=== PATIENT | male | born 1950 | race African-American/Black ===

== ENCOUNTER 2017-11-12 11:51 | Inpatient (IN) | payer MEDICARE, OTHER ==
[~2017-11-12] VITALS: Ht 172.7 cm; Wt 86.2 kg
--- NOTE | 2017-11-12 12:00 | NUR ---
No 1:1 available at this time per Nursing Jig And Fixture Builder, Security at bedside for safety.
--- NOTE | 2017-11-12 12:00 | NUR ---
at bedside to examine patient.
[2017-11-12] MEDS ORDERED: FURO-152 PO (12:11)
[2017-11-12] MEDS ORDERED: FLUO20CA36 PO (12:11)
[2017-11-12] MEDS ORDERED: FOLI1TAB16 PO (12:11)
[2017-11-12] MEDS ORDERED: ATOR20TA27 PO (12:11)
[2017-11-12] MEDS ORDERED: LISI-603 PO (12:11)
[2017-11-12] MEDS ORDERED: ASPI81TA31 PO (12:11)
[2017-11-12] MEDS ORDERED: METF10004 PO (12:12)
[2017-11-12] MEDS ORDERED: HALOPERIDOL LACTATE 5 MG/1 ML VIAL IM ONE (12:15)
[2017-11-12] MEDS ORDERED: LORAZEPAM 2 MG/1 ML VIAL IM ONE (12:15)
[2017-11-12] MEDS ORDERED: LORAZEPAM 2 MG/1 ML VIAL ONE (12:21)
[2017-11-12] MEDS ORDERED: HALOPERIDOL LACTATE 5 MG/1 ML VIAL ONE (12:21)
[2017-11-12 12:29] LABS: BASOPHILS # (AUTO) 0.1 K/uL (0.0-8.0); BASOPHILS % (AUTO) 0.8 % (0.0-2.0); EOSINOPHILS % (AUTO) 0.1 % (0.0-7.0); HEMATOCRIT 36.8 % (36.7-47.1); HEMOGLOBIN 12.4 g/dL (12.5-16.3); LYMPHOCYTES # (AUTO) 2.4 K/uL (20.0-40.0); MEAN CORPUSCULAR HEMOGLOBIN 33.6 uug (23.8-33.4); MEAN CORPUSCULAR HGB CONC 34 g/dL (32.5-36.3); MEAN CORPUSCULAR VOLUME 99.9 fL (73.0-96.2); MONOCYTES # (AUTO) 1.3 K/uL (2.0-10.0); MONOCYTES % (AUTO) 10.4 % (0.0-11.0); NEUTROPHILS # (AUTO) 8.9 K/uL (1.8-8.9); NEUTROPHILS % (AUTO) 69.7 % (38.5-71.5); PLATELET COUNT (AUTO) 369 K/uL (152-348); RED BLOOD CELL COUNT(AUTO) 3.69 MIL/uL (4.06-5.63); WHITE BLOOD COUNT (AUTO) 12.8 K/uL (3.6-10.2)
[2017-11-12 12:31] LABS: CARBON DIOXIDE 25 mmol/L (21-32); CHLORIDE 109 mmol/L (98-107); CREATININE 2.7 mg/dL (0.6-1.3); GLUCOSE 61 mg/dL (74-106); POTASSIUM 4.5 mmol/L (3.5-5.1); UREA NITROGEN, BLOOD 56 mg/dL (7-18)
[2017-11-12 12:35] LABS: ALANINE AMINOTRANSFERASE 111 U/L (16-63); ALKALINE PHOSPHATASE 78 U/L (50-136); ASPARTATE AMINOTRANSFERASE 127 U/L (15-37); BILIRUBIN,DIRECT 0.2 mg/dL (0.0-0.2); BILIRUBIN,TOTAL 0.5 mg/dL (0.2-1.0); TOTAL PROTEIN, SERUM 8.5 g/dL (6.4-8.2)
[2017-11-12 12:36] LABS: ACETAMINOPHEN < 2.0 ug/mL (10-30); ETHANOL < 3 MG/DL (0-0)
--- NOTE | 2017-11-12 12:51 | NUR ---
No 1:1 sitter available at this time. Security at bedside for safety. Patient is not medically clear per ERMD, requested to have personnel assigned as 1:1 for patient. Nursing Brazing Machine Operator Automatic will notify staff when personnel are available.
[2017-11-12] MEDS ORDERED: IV NS 1000 ML 1,000 ML IV PRN (13:05)
[2017-11-12] MEDS ORDERED: ONDANSETRON 4 MG/2 ML VIAL IV PRN (13:15)
[2017-11-12] MEDS ORDERED: LORAZEPAM 2 MG/1 ML VIAL IV PRN (13:15)
[2017-11-12] MEDS ORDERED: MAGNESIUM HYDROXIDE 30 ML LIQUID UDC PO PRN (13:15)
[2017-11-12] MEDS ORDERED: ACETAMINOPHEN 325 MG TABLET PO PRN (13:15)
[2017-11-12] MEDS ORDERED: HYDROCODONE/APAP 5-325MG TABLET PO PRN (13:15)
[2017-11-12] MEDS ORDERED: TEMAZEPAM 15 MG CAPSULE PO PRN (13:15)
[2017-11-12] MEDS ORDERED: HYDROCODONE/APAP 10-325 MG TABLET PO PRN (13:15)
--- NOTE | 2017-11-12 15:08 | NUR ---
telephone report given to Madelyn Trujillo. Pt. awaiting transfer to room 208.
--- NOTE | 2017-11-12 16:00 | NUR ---
PATIENT RECEIVED FROM E.. PATIENT WAS WET FROM NECK TO KNEES AND HAD URINATED HIMSELF. PATIENT WAS UNABLE TO ANSWER QUESTIONS HE WAS SLURRING SPEECH, AND VERY LETHARGIC. ALL BELONGINGS ACCOUNTED FOR AND PATIENT IS BEING MONITORED BY A 1:1 SITTER.
[2017-11-12] MEDS ORDERED: LORAZEPAM 2 MG/1 ML VIAL IM PRN (17:15)
[2017-11-12] MEDS ORDERED: HALOPERIDOL LACTATE 5 MG/1 ML VIAL IM PRN (17:45)
--- NOTE | 2017-11-12 18:50 | NUR ---
PATIENT STILL SLEEPING, BUT AWOKEN TO VERBAL STIMULATION. SITTER AT BEDSIDE, BED IN LOW POSITION, SIDE RAILS UP X2.
[2017-11-12 19:00] VITALS: BP 138/61
--- NOTE | 2017-11-12 19:14 | NUR ---
CHECKED PATIENTS BLOOD SUGAR AND REVEALED TO BE 41, JUICE GIVEN, AND PATIENT REPORTS FEELING "BETTER ALREADY".
[2017-11-13] VITALS: BP 141/73
[2017-11-13 04:00] VITALS: BP 145/71
--- NOTE | 2017-11-13 06:18 | NUR ---
PT SLEPT INTERMITTENTLY THROUGH THE NIGHT, PT DENIED HAVING ANY PAIN OR DIFFICULTY BREATHING. PT WAS CALM AND COOPERATIVE FOR MOST OF THE NIGHT, PT BECAME CONFUSED AND RESTLESS IN THE CEMENTER HELPER BUT WAS ABLE TO BE REDIRECTED, PT HAS TANGENTIAL TAUGHT, JUMPING FROM ONE TOPIC TO ANOTHER. PT IS ON A 72hr HOLD THAT IS UP ON 11/14/17 AT 1035. TRIED TO START AN IV ON PT, PT BECAME RESTLESS AND REFUSED TO HAVE AN IV INSERTED, PER DAY SHIFT NURSE AWARE OF PT REFUSING IV. DENIES HAVING ANY HALLUCINATIONS BUT PT IS NOTED TO MUMBLE UNDER HIS BREATH. ALL NEEDS MET, SAFETY MEASURES ARE IN PLACE, 1:1 SITTER AT BEDSIDE. BED ALARM IS ON.
[2017-11-13] MEDS: PANTOPRAZOLE SODIUM 40 MG TABLET.DR PO SCH (06:57)
[2017-11-13 06:59] LABS: BASOPHILS # (AUTO) 0.1 K/uL (0.0-8.0); BASOPHILS % (AUTO) 0.7 % (0.0-2.0); EOSINOPHILS # (AUTO) 0.1 K/uL (0.0-0.7); HEMATOCRIT 35.2 % (36.7-47.1); LYMPHOCYTES # (AUTO) 2.6 K/uL (20.0-40.0); LYMPHOCYTES % (AUTO) 31.6 % (20.5-51.5); MEAN CORPUSCULAR HEMOGLOBIN 33.7 uug (23.8-33.4); MEAN CORPUSCULAR HGB CONC 34 g/dL (32.5-36.3); MEAN CORPUSCULAR VOLUME 99.1 fL (73.0-96.2); MONOCYTES % (AUTO) 12.4 % (0.0-11.0); NEUTROPHILS # (AUTO) 4.5 K/uL (1.8-8.9); NEUTROPHILS % (AUTO) 54.3 % (38.5-71.5); PLATELET COUNT (AUTO) 328 K/uL (152-348); RED BLOOD CELL COUNT(AUTO) 3.55 MIL/uL (4.06-5.63); WHITE BLOOD COUNT (AUTO) 8.3 K/uL (3.6-10.2)
[2017-11-13 07:09] LABS: CREATININE 1.6 mg/dL (0.6-1.3); MAGNESIUM 2.5 mg/dL (1.8-2.4); PHOSPHOROUS 4.2 mg/dL (2.5-4.9); POTASSIUM 4.4 mmol/L (3.5-5.1)
--- NOTE | 2017-11-13 07:10 | NUR ---
RECEIVED REPORT FROM LEATHER ETCHER NURSE, PATIENT IN BED AWAKE, NO DISTRESS NOTED, BED IN LOW POSITION, SIDE RAILS UP X2. BED ALARM ON. SITTER AT BEDSIDE.
--- NOTE | 2017-11-13 08:10 | NUR ---
Patient started wandering the hallways and screaming that he is going to leave the hospital and he is not sick. patient later went to bed and poured a water pitcher of ice water over his head and claimed he was cleaning up.
[2017-11-13] MEDS: risperiDONE 0.5 MG TABLET PO SCH ×2 (11:18→20:40)
[2017-11-13] MEDS: BLOOD SUGAR DIAGNOSTIC 1 EACH STRIP VI SCH ×4 (12:34→20:51)
[2017-11-13 13:29] VITALS: BP 116/68
[2017-11-13 16:22] LABS: *BILIRUBIN,URIN NEGATIVE (NEGATIVE); *BLOOD, URINE NEGATIVE (NEGATIVE); *CLARITY,URINE SLIGHTLY CLOUDY (CLEAR); *COLOR,URINE YELLOW (YELLOW); *KETONES,URINE NEGATIVE (NEGATIVE); *PROTEIN,URINE 1+ (NEGATIVE); *UROBILINOGEN,URINE 0.2 E.U./dl (NORMAL); LEUKOCYTE ESTERASE ,URINE NEGATIVE (NEGATIVE); NITRITE, URINE NEGATIVE (NEGATIVE); PH,URINE 5.5 (5.0-8.0); UGLUCOSE NEGATIVE (NEGATIVE)
[2017-11-13 16:25] LABS: BACTERIA,URINE NONE SEEN /HPF (NONE SEEN); RBC,URINE 0-3 /HPF (0-3); SQUAMOUS EPITHELIAL CELL,UR NONE SEEN /HPF (NONE SEEN)
[2017-11-13 16:28] LABS: *CREATININE,URINE 143.6 mg/dL (30-125); *URINE TOTAL PROTEIN RANDOM 66.9 mg/dL (<150/24HR)
--- NOTE | 2017-11-13 18:52 | NUR ---
Patient was cooperative with care after morning administration of haldol and ativan. Patient was also seen by Dr. Luciano, medication changes made. Currently patient is in bed, no distress noted, bed in low position, side rails up x2, bed alarm on.
[2017-11-13 19:00] VITALS: BP 123/66
--- NOTE | 2017-11-13 20:00 | NUR ---
PATIENT IS AWAKE IN BED AAOX2 WITH CONFUSION. DENIES PAIN, NO ACUTE DISTRESS ON ASSESSMENT. SAFETY MEASURES IN PLACE, SITTER AT BEDSIDE FOR SAFETY CONCERNS. WILL CONTINUE TO MONITOR PATIENT
[2017-11-14] VITALS: BP 126/75
[2017-11-14 04:00] VITALS: BP 139/79
[2017-11-14] MEDS: PANTOPRAZOLE SODIUM 40 MG TABLET.DR PO SCH (06:17)
[2017-11-14] MEDS: BLOOD SUGAR DIAGNOSTIC 1 EACH STRIP VI SCH (06:23)
[2017-11-14 06:32] LABS: BASOPHILS # (AUTO) 0.1 K/uL (0.0-8.0); EOSINOPHILS # (AUTO) 0.1 K/uL (0.0-0.7); EOSINOPHILS % (AUTO) 1.4 % (0.0-7.0); HEMATOCRIT 32.3 % (36.7-47.1); HEMOGLOBIN 11.2 g/dL (12.5-16.3); LYMPHOCYTES # (AUTO) 3.4 K/uL (20.0-40.0); MEAN CORPUSCULAR HGB CONC 35 g/dL (32.5-36.3); MEAN CORPUSCULAR VOLUME 98.2 fL (73.0-96.2); MONOCYTES # (AUTO) 0.8 K/uL (2.0-10.0); MONOCYTES % (AUTO) 11.5 % (0.0-11.0); NEUTROPHILS # (AUTO) 2.7 K/uL (1.8-8.9); NEUTROPHILS % (AUTO) 38.1 % (38.5-71.5); PLATELET COUNT (AUTO) 307 K/uL (152-348); RED BLOOD CELL COUNT(AUTO) 3.29 MIL/uL (4.06-5.63)
--- NOTE | 2017-11-14 06:47 | NUR ---
PATIENT SLEPT WELL THROUGHOUT THE SHIFT. NO C/O PAIN OR ACUTE DISTRESS NOTED. PATIENT VOIDING WITHOUT DIFFICULTY. COOPERATIVE WITH CARE THIS SHIFT.SAFETY MAINTAINED AT ALL TIMES, SITTER REMAINS AT BEDSIDE WITH CLOSE MONITORING OF PATIENT.
[2017-11-14 07:04] LABS: BILIRUBIN,TOTAL 0.5 mg/dL (0.2-1.0); CREATININE 1.3 mg/dL (0.6-1.3); PHOSPHOROUS 2.8 mg/dL (2.5-4.9); POTASSIUM 4.5 mmol/L (3.5-5.1); TOTAL PROTEIN, SERUM 6.7 g/dL (6.4-8.2)
--- NOTE | 2017-11-14 07:10 | NUR ---
RECEIVED REPORT FROM BID MANAGER NURSE, PATIENT IN BED ASLEEP, NO DISTRESS NOTED AT THIS TIME, BED IN LOW POSITION, SIDE RAILS UP X2, BED ALARM ON, SITTER AT BEDSIDE.
[2017-11-14] MEDS: risperiDONE 0.5 MG TABLET PO SCH (08:46)
--- NOTE | 2017-11-14 11:40 | NUR ---
Patient given discharge instructions, belongings accounted for, and transported via wheelchair to MHU. Patient was in no distress at the time of discharge.
[2017-11-16 11:28] LABS: A/G RATIO 0.9 (0.7-1.7); ALPHA-1-GLOBULIN 0.2 g/dL (0.0-0.4); ALPHA-2-GLOBULIN 0.9 g/dL (0.4-1.0); BETA GLOBULIN 0.9 g/dL (0.7-1.3); GAMMA GLOBULIN 1.3 g/dL (0.4-1.8); GLOBULIN, TOTAL 3.3 g/dL (2.2-3.9); M-SPIKE Not Observed g/dL (Not Observed)
== END 2017-11-14 11:40 | DRG 684 ==
LOC: ER 11:58 → TELE 15:25
PROVIDERS: ADMIT Nurse Practitioner Acute Care; ATTEND Nurse Practitioner Acute Care
DX: N17.0 Acute kidney failure with tubular necrosis (principal); T50.2X5A Adverse effect of carbonic-anhydrase inhibitors, benzothiadiazides and other diuretics, initial encounter; T46.4X5A Adverse effect of angiotensin-converting-enzyme inhibitors, initial encounter; F29 Unspecified psychosis not due to a substance or known physiological condition; Y92.009 Unspecified place in unspecified non-institutional (private) residence as the place of occurrence of the external cause; D52.9 Folate deficiency anemia, unspecified; Z59.0 Homelessness; I10 Essential (primary) hypertension; F15.10 Other stimulant abuse, uncomplicated; F17.200 Nicotine dependence, unspecified, uncomplicated; E11.9 Type 2 diabetes mellitus without complications; E78.5 Hyperlipidemia, unspecified; D53.9 Nutritional anemia, unspecified; Z79.82 Long term (current) use of aspirin; Z79.899 Other long term (current) drug therapy; D72.829 Elevated white blood cell count, unspecified
CPT/HCPCS: 36415; 71045; 83735; 83970; 84100; 84155; 84156; 84165; 84300; 85025; 92523; 93005; 93307; A4663; G0480; G0480-TC; J1630; J2060

== ENCOUNTER 2017-11-14 12:28 | Inpatient (IN) | payer MEDICARE, OTHER ==
[~2017-11-14] VITALS: Ht 167.6 cm; Wt 74.4 kg
[2017-11-14 11:50] VITALS: BP 136/75
[~2017-11-14 12:28] MED LIST: ASPI81TA31 PO; ATOR20TA27 PO; FLUO20CA36 PO; FOLI1TAB16 PO; FURO-152 PO; LISI-603 PO; METF10004 PO
[2017-11-14] MEDS ORDERED: MAGNESIUM HYDROXIDE 30 ML LIQUID UDC PO PRN (12:45)
[2017-11-14] MEDS ORDERED: ACETAMINOPHEN 325 MG TABLET PO PRN (12:45)
[2017-11-14] MEDS ORDERED: MAG HYDROX/AL HYDROX/SIMETH 30 ML LIQUID UDC PO PRN (12:45)
[2017-11-14 15:24] VITALS: BP 129/80
--- NOTE | 2017-11-14 19:45 | NUR ---
RECEIVED PATIENT IN HIS ROOM, IN BED. HE IS NOTED AWAKE, A/O X 2. HE IS ABLE TO AMBULATE WITH STEADY GAIT AND ABLE TO MAKE HIS NEEDS KNOWN. HE IS NOTED, CALM AND COOPERATIVE. LOW MOOD, WITHDRAWN TO HIS ROOM, BLUNTED AFFECT, POOR INSIGHT NOTED TO THE REASON FOR HIS ADMISSION. DENIES SI/HI/VH/AH. HE IS ABLE TO CONTRACT FOR SAFETY. MEDICATION COMPLIANT AT THIS TIME. SAFETY WAS EMPHASIS. WILL CONTINUE TO MONITOR
[2017-11-14 20:00] VITALS: BP 136/85
[2017-11-14] MEDS: ATORVASTATIN 20 MG TABLET PO SCH (21:41)
--- NOTE | 2017-11-15 06:29 | NUR ---
PATIENT SLEPT FOR APPROX 8.00 HRS THROUGH THE NIGHT. NO COMBATIVE/AGGRESSIVE BX NOTED AT THIS TIME. DENIES SI. ABLE TO CFS. WILL CONTINUE TO MONITOR.
[2017-11-15 07:30] VITALS: BP 111/57
[2017-11-15] MEDS ORDERED: DEXTROSE 50% 50 ML DISP.SYRIN IV PRN (08:15)
[2017-11-15] MEDS: ASPIRIN 81 MG TAB.CHEW PO SCH (08:25)
[2017-11-15] MEDS: FOLIC ACID 1 MG TABLET PO SCH (08:25)
[2017-11-15] MEDS: BLOOD SUGAR DIAGNOSTIC 1 EACH STRIP VI SCH ×3 (11:56→20:27)
[2017-11-15 16:13] VITALS: BP 118/79
[2017-11-15 19:45] VITALS: BP 137/85
[2017-11-15] MEDS: ATORVASTATIN 20 MG TABLET PO SCH (20:14)
[2017-11-15] MEDS: risperiDONE 0.5 MG TABLET PO SCH (20:14)
[2017-11-16 07:30] VITALS: BP 112/63
[2017-11-16] MEDS: risperiDONE 0.5 MG TABLET PO SCH ×2 (09:04→20:42)
[2017-11-16] MEDS: FOLIC ACID 1 MG TABLET PO SCH (09:04)
[2017-11-16] MEDS: BLOOD SUGAR DIAGNOSTIC 1 EACH STRIP VI SCH ×4 (09:04→20:48)
[2017-11-16] MEDS: ASPIRIN 81 MG TAB.CHEW PO SCH (09:04)
[2017-11-16 15:44] VITALS: BP 100/79
[2017-11-16] MEDS: INSULIN REGULAR, HUMAN 300 UNIT/3 ML VIAL SQ PRN (18:13)
[2017-11-16 20:25] VITALS: BP 116/71
[2017-11-16] MEDS: ATORVASTATIN 20 MG TABLET PO SCH (20:42)
[2017-11-16] MEDS: TEMAZEPAM 7.5 MG CAPSULE PO PRN (22:52)
[2017-11-17] MEDS: BLOOD SUGAR DIAGNOSTIC 1 EACH STRIP VI SCH ×4 (06:32→20:31)
[2017-11-17 07:30] VITALS: BP 119/66
[2017-11-17] MEDS: FOLIC ACID 1 MG TABLET PO SCH (10:42)
[2017-11-17] MEDS: risperiDONE 0.5 MG TABLET PO SCH ×2 (10:43→20:31)
[2017-11-17] MEDS: ASPIRIN 81 MG TAB.CHEW PO SCH (10:43)
--- NOTE | 2017-11-17 15:20 | NUR ---
Initial DC Plan: Patient currently resides at [facility] on [facility] [[address] , [place] [address]; ]. HANNAH spoke with Kira from [facility] who stated she can picking belt operator patient upon discharge. SW will follow up with MD and patient to discuss most appropriate discharge. SW will form a safe and proper discharge.
[2017-11-17 15:41] VITALS: BP 132/82
[2017-11-17] MEDS: INSULIN REGULAR, HUMAN 300 UNIT/3 ML VIAL SQ PRN (17:42)
--- NOTE | 2017-11-17 20:00 | NUR ---
RECEIVED PATIENT IN HIS ROOM. HE IS NOTED A/O X 2. HE IS ABLE TO AMBULATE WITH STEADY GAIT AND ABLE TO MAKE HIS NEEDS KNOWN. NOTED WITHDRAWN. HE DENIES SI/HI. HE DENIES VH/AH. SAFETY WAS EMPHASIS, ENCOURAGE EXPRESSION OF FEELINGS. WILL CONTINUE TO MONITOR.
[2017-11-17 20:09] VITALS: BP 125/73
[2017-11-17] MEDS: ATORVASTATIN 20 MG TABLET PO SCH (20:31)
[2017-11-18] MEDS: BLOOD SUGAR DIAGNOSTIC 1 EACH STRIP VI SCH ×4 (07:14→20:51)
[2017-11-18 07:30] VITALS: BP 106/71
[2017-11-18] MEDS: ASPIRIN 81 MG TAB.CHEW PO SCH (08:36)
[2017-11-18] MEDS: FOLIC ACID 1 MG TABLET PO SCH (08:39)
[2017-11-18] MEDS: risperiDONE 0.5 MG TABLET PO SCH (08:39)
[2017-11-18 15:55] VITALS: BP 119/81
[2017-11-18] MEDS: CLONAZEPAM 0.5 MG TABLET PO PRN (18:51)
[2017-11-18 20:46] VITALS: BP 120/70
[2017-11-18] MEDS: ATORVASTATIN 20 MG TABLET PO SCH (20:46)
[2017-11-18] MEDS: risperiDONE 1 MG TABLET PO SCH (20:46)
[2017-11-18] MEDS: INSULIN REGULAR, HUMAN 300 UNIT/3 ML VIAL SQ PRN (20:48)
--- NOTE | 2017-11-19 05:10 | NUR ---
GPS/NSG Patient first observed awake in room, alert and oriented to name, place and situation. Patient's appearance disheveled and unkempt. Patient compliant with medication, cooperative with care and diabetic treatment. Patient's speech normal, thought process somewhat disorganized poor insight. Patient continues to require observation for safety.
[2017-11-19 07:30] VITALS: BP 143/66
--- NOTE | 2017-11-19 07:30 | NUR ---
RECEIVED REPORT FROM ARCHITECT MARINE NURSE, PATIENT IN ROOM, NO SI OR PSYCHOTIC BEHAVIOR NOTED AT THIS TIME. PATIENT IS COOPERATIVE AND COMPLIANT WITH MEDS. INDEPENDENT WITH ADLS. SELF CARE. LAST BLOOD SUGAR 89, NO INSULIN COVERAGE NEEDED. COMFORT MEASURES PROVIDED. WILL CONTINUE TO MONITOR.
[2017-11-19] MEDS: BLOOD SUGAR DIAGNOSTIC 1 EACH STRIP VI SCH ×4 (07:37→20:11)
[2017-11-19] MEDS: FOLIC ACID 1 MG TABLET PO SCH (08:05)
[2017-11-19] MEDS: ASPIRIN 81 MG TAB.CHEW PO SCH (08:05)
[2017-11-19] MEDS ORDERED: risperiDONE 0.5 MG TABLET PO SCH (09:00)
[2017-11-19 14:23] VITALS: BP 156/83
[2017-11-19 20:00] VITALS: BP 153/80
--- NOTE | 2017-11-19 20:00 | NUR ---
RECEIVED PATIENT AWAKE, SITTING IN TV ROOM. A/O X2. NO PSYCHOTIC BEHAVIOR NOTED. PATIENT DENIES PAIN OR DISCOMFORT. PATIENT APPROPRIATE WITH STAFF AND COOPERATIVE WITH CARE. PROVIDED SAFE AND THERAPEUTIC ENVIRONMENT. WILL CONTINUE TO MONITOR AND CLOSELY MONITOR.
[2017-11-19] MEDS: ATORVASTATIN 20 MG TABLET PO SCH (20:10)
[2017-11-19] MEDS: risperiDONE 1 MG TABLET PO SCH (20:10)
[2017-11-19] MEDS: TEMAZEPAM 7.5 MG CAPSULE PO PRN (21:52)
--- NOTE | 2017-11-19 22:00 | NUR ---
PATIENT GIVEN RESTORIL 7.5MG PO PRN FOR SLEEP. BED ALARM ON. WILL CONTINUE TO MONITOR AND ASSESS.
--- NOTE | 2017-11-19 23:00 | NUR ---
RESTORIL INEFFECTIVE. PATIENT AWAKE IN ROOM, READING. WILL CONTINUE TO MONITOR AND ASSESS.
--- NOTE | 2017-11-19 23:40 | NUR ---
PATIENT WALKING IN HALLWAY. UNABLE TO SLEEP. PATIENT IS ANXIOUS. GIVEN KLONOPIN 0.5MG PO PRN FOR ANXIETY. WILL CONTINUE TO MONITOR.
[2017-11-19] MEDS: CLONAZEPAM 0.5 MG TABLET PO PRN (23:41)
--- NOTE | 2017-11-20 00:40 | NUR ---
PATIENT ASLEEP IN BED. BED ALARM ON. WILL CONTINUE TO MONITOR AND ASSESS.
[2017-11-20] MEDS: BLOOD SUGAR DIAGNOSTIC 1 EACH STRIP VI SCH ×4 (06:35→20:25)
--- NOTE | 2017-11-20 06:42 | NUR ---
PATIENT AWAKE IN BED. SLEPT A TOTAL OF 6 HOURS. VERY PLEASANT WHEN APPROACHED. DENIES PAIN. ALL NEEDS ATTENDED. WILL CONTINUE TO MONITOR AND ASSESS.
[2017-11-20 07:30] VITALS: BP 130/76
[2017-11-20] MEDS: risperiDONE 1 MG TABLET PO SCH ×2 (08:45→20:25)
[2017-11-20] MEDS: ASPIRIN 81 MG TAB.CHEW PO SCH (08:45)
[2017-11-20] MEDS: FOLIC ACID 1 MG TABLET PO SCH (08:45)
[2017-11-20] MEDS ORDERED: risperiDONE 0.5 MG TABLET PO SCH (09:00)
[2017-11-20 16:06] VITALS: BP 129/78
[2017-11-20 20:04] VITALS: BP 122/69
[2017-11-20] MEDS: ATORVASTATIN 20 MG TABLET PO SCH (20:25)
--- NOTE | 2017-11-21 06:07 | NUR ---
Patient first observed awake in room, alert and oriented to name, place and situation. Patient's appearance disheveled and unkempt. Patient compliant with medication, cooperative with care and diabetic treatment. Patient's speech normal, thought process somewhat disorganized poor insight. Patient slept a total of six and a half hours, no prn given. Patient continues to require observation for safety last observed lying in bed appeared to be asleep.
[2017-11-21] MEDS: BLOOD SUGAR DIAGNOSTIC 1 EACH STRIP VI SCH ×4 (06:52→21:07)
[2017-11-21] MEDS: risperiDONE 1 MG TABLET PO SCH ×2 (08:03→21:07)
[2017-11-21] MEDS: FOLIC ACID 1 MG TABLET PO SCH (08:03)
[2017-11-21] MEDS: ASPIRIN 81 MG TAB.CHEW PO SCH (08:03)
--- NOTE | 2017-11-21 09:33 | NUR ---
Patient noted sitting on the side of bed, no complaints of pain, no signs of distress, took all am medications whole, no change in LOC noted, no psychotic behaviors noted, all needs met at this time
[2017-11-21 09:36] VITALS: BP 144/80
[2017-11-21 16:11] VITALS: BP 131/82
--- NOTE | 2017-11-21 18:48 | NUR ---
Patient took all medications this shift, no behaviors noted, will given report to power and recovery shift engineer nurse
[2017-11-21 20:19] VITALS: BP 149/67
[2017-11-21] MEDS: ATORVASTATIN 20 MG TABLET PO SCH (21:07)
[2017-11-22] MEDS: BLOOD SUGAR DIAGNOSTIC 1 EACH STRIP VI SCH ×2 (07:17→11:30)
--- NOTE | 2017-11-22 07:21 | NUR ---
GPS/NSG PATIENT FIRST OBSERVED AWAKE ON UNIT WITH PLEASANT MOOD ON APPROACH, FAIR APPEARANCE, ORIENTED TO NAME, PLACE, AND SITUATION, COMPLIANT WITH MEDICATION AND DIABETIC TX. PATIENT IS COOPERATIVE FOLLOWS REDIRECTION, IS SELF CARE REQUIRES MINIMUM ASSIST, IS CONTINENT AND AMBULATES WITH A FWW. SLEPT A TOTAL OF FOUR HOURS NO PRN NECESSARY. WILL CONTINUE TO MONITOR FOR SAFETY.
[2017-11-22 07:30] VITALS: BP 141/72
[2017-11-22] MEDS: FOLIC ACID 1 MG TABLET PO SCH (08:21)
[2017-11-22] MEDS: risperiDONE 1 MG TABLET PO SCH ×2 (08:21→20:40)
[2017-11-22] MEDS: ASPIRIN 81 MG TAB.CHEW PO SCH (08:21)
--- NOTE | 2017-11-22 10:10 | NUR ---
Patient is alert and verbally responsive. Continue on blood sugar checking. no signs of hypo/hyperglycemia. medication given, tolerated well. not in distress. no complaint of pain/discomfort. will continue monitor
[2017-11-22 15:17] VITALS: BP 129/66
[2017-11-22] MEDS ORDERED: INSULIN REGULAR, HUMAN 300 UNIT/3 ML VIAL SQ PRN (15:30)
[2017-11-22 19:30] VITALS: BP 144/78
[2017-11-22] MEDS: ATORVASTATIN 20 MG TABLET PO SCH (20:40)
[2017-11-23] MEDS: BLOOD SUGAR DIAGNOSTIC 1 EACH STRIP VI SCH ×2 (05:58→08:58)
[2017-11-23 07:30] VITALS: BP 130/84
[2017-11-23] MEDS: risperiDONE 1 MG TABLET PO SCH (07:57)
[2017-11-23] MEDS: FOLIC ACID 1 MG TABLET PO SCH (07:57)
[2017-11-23] MEDS: ASPIRIN 81 MG TAB.CHEW PO SCH (07:57)
--- NOTE | 2017-11-23 10:04 | NUR ---
DC Note: Patient will be discharged home [[address] [place] [address]] via private transportation. SW spoke with patient's correctional case records supervisor Kira from [facility] [[phone]] who stated she will picker and packer patient around 1pm. Patient is alert and oriented x3 and denies SI and HI. Patient is aware and agreeable to discharge plans. Patient will follow up with his electric installer Dr. Noble at the [facility] [[address] [place] [address]]. Patient does not currently have a psychiatrist. Patient was provided referrals to [facility] [[address] [place] [address]; ], [facility] [[address] [place] [address]; ], and [facility] [[address] [address]; ]. Patient was provided with additional outpatient mental health resources to [facility] , [facility]ib[facility] Romero , and the National Suicide Prevention Lifeline . Patient was provided a brief substance abuse intervention and encouraged to present at [facility] on November 25 at 9am for intake. Addendum: 11/23/17 at 1101 by NALINI YOUNG HANNAH arranged home health for patient through [facility] [ ]. HANNAH spoke with Guera from [facility] who stated services will begin tomorrow 11/23/2017.
--- NOTE | 2017-11-23 10:21 | NUR ---
Firearms Report: HANNAH submitted Mental Health Report to [employer] on 11/23.
--- NOTE | 2017-11-23 13:00 | NUR ---
GPS: Nursing Notes: Discharge Notes: Patient is awake and responding to his name, cooperative with nursing care, compliant with his medications, following staff directions, denies any SI/HI, denies any AH/VH, denies any pain or discomfort, denies any SOB, discharged to [facility] at [address], [place] [address] , picked up by patient's telephonic nurse case manager Kira, transported to his apartment via private transportation, instructions and prescription given to patient and telephonic nurse case manager Kira, took all his belongings with him. 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 Noble at the [facility] [[address] [place] [address]]. Patient does not currently have a psychiatrist. Patient was provided referrals to [facility] [[address] [place] [address]; ], [facility] [[address] [place] [address]; ], and [facility] [[address] [place] [address]; ]. Patient was provided with additional outpatient mental health resources to [facility] , Maribell Romero , and the National Suicide Prevention Lifeline . Patient was provided a brief substance abuse intervention and encouraged to present at [facility] on November 25 at 9am for intake. HANNAH arranged home health for patient through [facility] [ ]. HANNAH spoke with Guera from [facility] who stated services will begin tomorrow 11/23/2017.
== END 2017-11-23 13:00 | disposition home health service (06) | DRG 885 ==
LOC: GPS 12:28
PROVIDERS: ADMIT Psychiatry & Neurology Psychiatry; ATTEND Nurse Practitioner Acute Care
DX: F29 Unspecified psychosis not due to a substance or known physiological condition (principal); N17.9 Acute kidney failure, unspecified; I11.0 Hypertensive heart disease with heart failure; Z86.59 Personal history of other mental and behavioral disorders; Z59.0 Homelessness; F17.210 Nicotine dependence, cigarettes, uncomplicated; Z79.82 Long term (current) use of aspirin; D52.9 Folate deficiency anemia, unspecified; E78.5 Hyperlipidemia, unspecified; N14.1 Nephropathy induced by other drugs, medicaments and biological substances; T50.2X5A Adverse effect of carbonic-anhydrase inhibitors, benzothiadiazides and other diuretics, initial encounter; T43.625A Adverse effect of amphetamines, initial encounter; Y92.89 Other specified places as the place of occurrence of the external cause; F15.10 Other stimulant abuse, uncomplicated; E11.9 Type 2 diabetes mellitus without complications; I50.9 Heart failure, unspecified
CPT/HCPCS: 36415; J1815